=== PATIENT | male | born 1965 | race American Indian/Alaskan Native ===

== ENCOUNTER 2018-01-20 17:22 | Inpatient (IN) | payer SELFPAY ==
[2018-01-20 17:38] LABS: Basophils % (Auto) 0.6 % (0.0-1.8); Eosinophils % (Auto) 0.4 % (0.0-4.3); Hematocrit 41.3 % (35.5-45.6); Hemoglobin 13.3 gm/dl (11.8-15.2); Lymphocytes # (Auto) 1.9 K/mm3 (1.2-5.4); Mean Corpuscular HGB Conc 32 % (32-34); Mean Corpuscular Hemoglobin 28 pg (28-32); Mean Corpuscular Volume 88 fl (84-94); Monocytes # (Auto) 0.6 K/mm3 (0.0-0.8); Monocytes % (Auto) 10.5 % (0.0-7.3); Platelet Count 228 K/mm3 (140-440); Red Blood Count 4.72 M/mm3 (3.65-5.03); Red Cell Distribution Width 14.7 % (13.2-15.2)
[2018-01-20 17:47] LABS: BUN/Creatinine Ratio 10; Blood Urea Nitrogen 19 mg/dL (9-20); Calcium 9.5 mg/dL (8.4-10.2); Hemolysis Index 4
[2018-01-20 17:48] LABS: INR 0.99 (0.87-1.13)
--- NOTE | 2018-01-20 18:06 | Cat Scan Report ---
FINAL REPORT PROCEDURE: CT HEAD/BRAIN WO CON TECHNIQUE: Computerized tomography of the head was performed without contrast material. HISTORY: neuro deficits < 6hrs or sx present upon awakening COMPARISON: No prior studies are available for comparison. FINDINGS: Well-defined area of decreased density seen adjacent to the anterior horn of the right lateral ventricle within the adjacent white matter consistent with an old lacunar infarct. Several old lacunar infarcts are visualized in the left basal ganglia. There appears to be 1 old lacunar infarct in the right basal ganglia posterior laterally. There are multiple areas of decreased density in the right and left cerebellar hemispheres, right side greater than left. These are fairly well-defined and I suspect represent old areas of infarction. These are suboptimally seen due to beam hardening artifact in the posterior fossa. Small area of decreased density is seen in the left occipital lobe axial image 23 series 2 with intermediate decreased density. This is fairly well-defined. It may represent old ischemic change. Subacute ischemic change not entirely excluded. No evidence of skull fracture. Small amount of mucosal thickening seen posteriorly in the left maxillary sinus. The paranasal sinuses otherwise are clear. Mastoid air cells are clear. IMPRESSION: Multiple parenchymal lesions visualized. These are seen in the right and left basal ganglia and anterior to the anterior horn of the right lateral ventricle suggesting multiple old lacunar infarcts. Multiple low-density lesions seen in the right and left cerebellar hemisphere right greater than left. These may represent multiple old infarcts. These are suboptimally seen due to beam hardening artifact in the posterior fossa. There is also an area of decreased density in the left occipital lobe as described above. Subacute infarct is not excluded. This too could be old. This does not appear to represent an acute infarct. No other abnormalities are seen. No evidence of intracranial hemorrhage skull fracture or hydrocephalus. If clinically indicated MRI of the brain could be obtained to confirm the findings in the cerebellar hemisphere and left occipital lobe are old.
--- NOTE | 2018-01-20 18:34 | XRay Report ---
FINAL REPORT PROCEDURE: XR CHEST 1V AP TECHNIQUE: Chest radiograph anteroposterior view. CPT 20613 HISTORY: hypertension COMPARISON: No prior studies are available for comparison. FINDINGS: Heart: Normal. Mediastinum/Vessels: Normal. Lungs/Pleural space: Normal. Bony thorax: No acute osseous abnormality. Life support devices: None. IMPRESSION: No acute cardiopulmonary abnormality.
--- NOTE | 2018-01-20 19:27 | Emergency Department Report ---
ED Neuro Deficit HPI - General Chief Complaint: Neuro Symptoms/Deficit Stated Complaint: CVA Time Seen by Provider: 01/20/18 17:35 Source: EMS Mode of arrival: Stretcher Limitations: Other - History of Present Illness Initial Comments: 52-year-old man that came in as a stroke code. However, speaking with the patient's "boss" and coworker's as well as his , his symptoms are clearly not acute. His boss states that this is the second episode over the last 48 hours when the patient "rolled his eyes" but did not have a seizure. He felt dizzy today has had some slurred speech. His coworkers stated that he called 911 2 days ago for the same symptoms. He also states that the patient has been having headaches for weeks. 2 days ago EMS responded to the work site. The patient declined transfer. Yesterday he did not work. His states that his eyes have been disconjugate for at least 5 months. He has had several "spells". He has continued to work despite these events. The patient has a history of hypertension and is noncompliant with medication. At this time his speech is coherent. He is not complaining of any double vision. He does state that he knows that his eyes are not completely straight but he seems to D emphasize the chronicity of this. He does not complain of headache. As far as a last known well time it would appear that that was at least 48 hours ago. In addition at least some of the patient's strokelike symptoms are of at least 5 months duration. The patient has had intermittent episodes perhaps of worsening symptoms. He stayed home yesterday but did not seek medical attention. In any case, the patient will not be a candidate for TPA due to being outside the window for treatment with likely subacute stroke. Location: speech (intermittent speech difficulty) Presenting Symptoms: Absent: Weak/Paralyzed One Side, Sudden, Severe Headache, Blurred/Loss of Vision, Facial Droop/Numbness, Unable to Speak Clearly, Altered Mental Status History of same: Yes Place: home, work Severity: moderate Quality: intermittant Improves With: none On Anticoagulants: No Context: other Associated Symptoms: denies other symptoms (patient denied headaches but his coworkers stated that he has been complaining of this) Treatments Prior to Arrival: none - Related Data Allergies/Adverse Reactions: Allergies Allergy/AdvReac Type Severity Reaction Status Date / Time Penicillins Allergy Swelling Verified 01/20/18 17:26 ED Review of Systems ROS: Stated complaint: CVA Other details as noted in HPI Constitutional: denies: chills, fever Eyes: denies: eye pain, eye discharge, vision change ENT: denies: ear pain, throat pain Respiratory: denies: cough, shortness of breath, wheezing Cardiovascular: denies: chest pain, palpitations Endocrine: no symptoms reported Gastrointestinal: denies: abdominal pain, nausea, diarrhea Genitourinary: denies: urgency, dysuria Musculoskeletal: denies: back pain, joint swelling, arthralgia Skin: denies: rash, lesions Neurological: as per HPI, headache, other. denies: weakness, paresthesias Psychiatric: denies: anxiety, depression Hematological/Lymphatic: denies: easy bleeding, easy bruising ED Past Medical Hx - Past Medical History Hx Hypertension: Yes - Social History Smoking Status: Current Every Day Smoker Substance Use Type: None ED Neuro Physical Exam - General Limitations: Other General appearance: alert, in no apparent distress Suspected Stroke: Yes (but subacute) - Head Head exam: Present: atraumatic, normocephalic - Eye Eye exam: Present: normal appearance. Absent: EOMI, scleral icterus - ENT ENT exam: Present: mucous membranes moist, other (mild left facial asymmetry) - Neck Neck exam: Present: normal inspection - Respiratory Respiratory exam: Present: normal lung sounds bilaterally. Absent: respiratory distress - Cardiovascular Cardiovascular Exam: Present: regular rate, normal rhythm. Absent: systolic murmur, diastolic murmur, rubs, gallop - GI/Abdominal GI/Abdominal exam: Present: soft, normal bowel sounds. Absent: distended, tenderness, guarding, rebound, rigid - Rectal Rectal exam: Present: deferred - Extremities Exam Extremities exam: Present: normal inspection - Back Exam Back exam: Present: normal inspection - Neurological Exam Neurological exam: Present: alert, oriented X3. Absent: CN II-XII intact, motor sensory deficit - NIHSS Assessment Interval: Baseline 1a. Level of Consciousness: alert 1b. LOC Questions: answers correctly 1c. LOC Commands: performs tasks correctly 2. Best Gaze: partial gaze palsy 3. Visual: no visual loss 4. Facial Palsy: minor paralysis 5b. Motor Arm Right: no drift 5a. Motor Arm Left: no drift 6a. Motor Leg Left: no drift 6b. Motor Leg Right: no drift 7. Limb Ataxia: absent 8. Sensory: normal 9. Best Language: no aphasia 10. Dysarthria: normal 11. Extinction/Inattention: no abnormality Total Score: 2 Stroke Severity: Minor Stroke - Psychiatric Psychiatric exam: Present: normal affect, normal mood - Skin Skin exam: Present: warm, dry, intact, normal color. Absent: rash ED Course Vital Signs 01/20/18 01/20/18 17:51 18:02 Temperature 98.2 F 98.7 F Pulse Rate 71 67 Respiratory 18 18 Rate Blood Pressure 152/96 Blood Pressure 150/96 [Left] O2 Sat by Pulse 99 100 Oximetry - Reevaluation(s) Reevaluation #1: Remarkably the patient is able to perform finger to nose testing. He does appear to have at least a nerve palsy on the right with facial asymmetry on the left. He did not have ne drift or sensory loss. He does not have inattention. I did not walk the patient but I suspect that he would have a cerebellar gait. 01/20/18 19:41 Reevaluation #2: I conferred with the interpreting radiologist. The patient has multiple parenchymal lesions both right and left basal ganglion. He has multiple cerebellar lesions. Is no definite acute abnormality seen. There are multiple areas also in the occipital lobe noted. Markedly the patient does not have a gross visual field deficits or dysmetria or diplopia on exam. He is not a candidate for TPA due to his prolonged last well time. In addition he likely has had subacute strokes. TPA is contraindicated in this setting. Notwithstanding this, emergency MR studies were ordered. The patient has chronic renal insufficiency so CTA is not appropriate. His status was discussed with Dr. Rm who is admitting the patient to the hospitalist service. He will be given aspirin. 01/20/18 19:43 - Lab Data Result diagrams: 01/20/18 17:25 01/20/18 17:25 Lab Results 01/20/18 01/20/18 01/20/18 Range/Units 17:21 17:25 17:25 WBC 5.7 (4.5-11.0) K/mm3 RBC 4.72 (3.65-5.03) M/mm3 Hgb 13.3 (11.8-15.2) gm/dl Hct 41.3 (35.5-45.6) % MCV 88 (84-94) fl MCH 28 (28-32) pg MCHC 32 (32-34) % RDW 14.7 (13.2-15.2) % Plt Count 228 (140-440) K/mm3 Lymph % (Auto) 33.0 (13.4-35.0) % Churchill % (Auto) 10.5 H (0.0-7.3) % Eos % (Auto) 0.4 (0.0-4.3) % Baso % (Auto) 0.6 (0.0-1.8) % Lymph # 1.9 (1.2-5.4) K/mm3 Churchill # 0.6 (0.0-0.8) K/mm3 Eos # 0.0 (0.0-0.4) K/mm3 Baso # 0.0 (0.0-0.1) K/mm3 Seg Neutrophils % 55.5 (40.0-70.0) % Seg Neutrophils # 3.2 (1.8-7.7) K/mm3 PT 13.6 (12.2-14.9) Sec. INR 0.99 (0.87-1.13) APTT 25.0 (24.2-36.6) Sec. Thrombin Time (15.1-19.6) Sec. Sodium (137-145) mmol/L Potassium (3.6-5.0) mmol/L Chloride (98-107) mmol/L Carbon Dioxide (22-30) mmol/L Anion Gap mmol/L BUN (9-20) mg/dL Creatinine (0.8-1.5) mg/dL Estimated GFR ml/min BUN/Creatinine Ratio % Glucose (75-100) mg/dL POC Glucose 113 H (70-105) Calcium (8.4-10.2) mg/dL Troponin T (0.00-0.029) ng/mL 01/20/18 01/20/18 Range/Units 17:25 17:25 WBC (4.5-11.0) K/mm3 RBC (3.65-5.03) M/mm3 Hgb (11.8-15.2) gm/dl Hct (35.5-45.6) % MCV (84-94) fl MCH (28-32) pg MCHC (32-34) % RDW (13.2-15.2) % Plt Count (140-440) K/mm3 Lymph % (Auto) (13.4-35.0) % Churchill % (Auto) (0.0-7.3) % Eos % (Auto) (0.0-4.3) % Baso % (Auto) (0.0-1.8) % Lymph # (1.2-5.4) K/mm3 Churchill # (0.0-0.8) K/mm3 Eos # (0.0-0.4) K/mm3 Baso # (0.0-0.1) K/mm3 Seg Neutrophils % (40.0-70.0) % Seg Neutrophils # (1.8-7.7) K/mm3 PT (12.2-14.9) Sec. INR (0.87-1.13) APTT (24.2-36.6) Sec. Thrombin Time 15.8 (15.1-19.6) Sec. Sodium 138 (137-145) mmol/L Potassium 3.5 L (3.6-5.0) mmol/L Chloride 100.0 (98-107) mmol/L Carbon Dioxide 23 (22-30) mmol/L Anion Gap 19 mmol/L BUN 19 (9-20) mg/dL Creatinine 1.9 H (0.8-1.5) mg/dL Estimated GFR 38 ml/min BUN/Creatinine Ratio 10 % Glucose 119 H (75-100) mg/dL POC Glucose (70-105) Calcium 9.5 (8.4-10.2) mg/dL Troponin T < 0.010 (0.00-0.029) ng/mL - EKG Data -: EKG Interpreted by Sd EKG shows normal: sinus rhythm, axis, intervals Interpretation: nonspecific ST-T wave yen, other (patient has a low atrial rhythm with evidence of LVH. No acute changes) - Radiology Data Radiology results: report reviewed - Thrombolytic Inclusion/Exclusion Thrombolytic Exclusion Criteria: Symptom Onset > 3 Hours Thrombolytic Contraindications: Stroke in Past 3 Months Critical Care Time: Yes Critical care time in (mins) excluding proc time.: 60 Critical care attestation.: If time is entered above; I have spent that time in minutes in the direct care of this critically ill patient, excluding procedure time. ED Disposition Clinical Impression: Renal insufficiency CVA (cerebral vascular accident) Qualifiers: CVA mechanism: unspecified Qualified Code(s): I63.9 - Cerebral infarction, unspecified Hypertension Qualifiers: Hypertension type: essential hypertension Qualified Code(s): I10 - Essential ( primary) hypertension Disposition: OP ADMIT IP TO THIS HOSP Is pt being admited?: Yes Does the pt Need Aspirin: Yes Condition: Stable Instructions: Hypertension (ED) Referrals: PRIMARY CARE, [Primary Care Provider] - 3-5 Days Time of Disposition: 19:46
[2018-01-20] MEDS ORDERED: BABY ASPIRIN PO ONE (19:46)
--- NOTE | 2018-01-20 20:26 | Magnetic Resonance Report ---
FINAL REPORT PROCEDURE: MR BRAIN WO CON TECHNIQUE: Magnetic resonance imaging of the brain was performed without contrast material. HISTORY: multiple lacunar infarcts COMPARISON: Prior CT scan of the brain obtained earlier today. FINDINGS: There is no evidence of intracranial hemorrhage. No parenchymal hemorrhage, mass lesions or mass effect are identified. There are however multiple areas of restricted diffusion visualized. These are visualized in both the right and left cerebellar hemisphere more prominent on the right than the left. There are also several small areas of restricted diffusion, mild increased T2 signal decreased T1 signal in the left occipital lobe posteriorly inferiorly. There is also a small area of restricted diffusion in the left side of the shukri superiorly medially and a small area within the vermis. There is also a small area of restricted diffusion centrally in the right thalamus. These areas of restricted diffusion are consistent with multiple acute lacunar and small parenchymal infarctions. No significant mass effect. The 4th ventricle appears patent and is located in the midline. Small old lacunar infarcts are seen in the right and left basal ganglia. A few of the show hemosiderin staining artifact consistent with previous small hemorrhages. No acute hemorrhage is seen. Small old lacunar infarct also seen anterior to the anterior horn of the right lateral ventricle. There is a small amount of increased T2 signal in the periventricular white matter and deep white matter without restricted diffusion consistent with mild gliosis related to microvascular disease or white matter changes of aging. The ventricles are normal size and are midline. The corpus callosum, region of the pituitary fossa and the foramina magnum are unremarkable. There is minimal fluid or mucosal thickening posteriorly in the left maxillary sinus. The paranasal sinuses otherwise are clear. Mastoid air cells are clear. IMPRESSION: Multiple acute infarctions visualized in the right and left cerebellar hemisphere and left occipital lobe. Acute lacunar infarct also seen in the vermis and left side of the shukri, and right thalamus. Old lacunar infarcts are present as described. No significant mass effect is seen. There is mild gliosis as described. Minimal paranasal sinus disease as described. I have discussed these findings with Dr. Suresh by phone conversation on 01/30/2018 at 8:14 p.m. Eastern standard time. Critical value:
--- NOTE | 2018-01-20 20:30 | Magnetic Resonance Report ---
FINAL REPORT PROCEDURE: MR MRA/MRV HEAD WO CON TECHNIQUE: Axial 3-D [id number] MR angiography of the [place] and brain was performed. The source images were reconstructed in various views using maximum intensity projection. HISTORY: multiple lacunar infarcts COMPARISON: No prior studies are available for comparison. FINDINGS: The visualized portions of the internal carotid artery appear widely patent. The carotid siphons appear widely patent. Both A1 segments are widely patent. The anterior cerebral artery and anterior communicating artery appear patent. Middle cerebral arteries show no abnormalities. Right and left vertebral arteries are widely patent. Basilar artery is also widely patent. There is patent posterior communicating artery on the right. Right and left posterior cerebral arteries appear widely patent. There is no evidence of occlusion of the anterior or posterior circulation. No dissection or aneurysm is seen. No vascular malformations are identified. IMPRESSION: Anterior and posterior circulation are intact as described. No evidence of occlusion, significant stenosis, aneurysm or vascular malformation.
--- NOTE | 2018-01-20 21:45 | History and Physical Report ---
History of Present Illness Date of examination: 01/20/18 Date of admission: 01/20/2018 Chief complaint: Chief complaint: Left facial weakness and left-sided weakness. History of present illness: History of Present Illness: 52-year-old -[place] male comes in for weakness of the left side of face for the last 48 hours. Patient apparently rolled his left eye up. Patient came in as a "stroke code"patient able to work the last 48 hours.. Patient declined transfer. Patient has been having headaches for the last 48 hours. Patient is a poor historian. Patient says he has double vision on looking to the right side. No realization of fluids. No weakness in the legs. Able to walk normally. No chest pain no shortness of breath and no palpitations. Past Medical History Hypertension: Yes Social History Smoking Status: Current Every Day Smoker Substance Use Type: None Family history Htn Surgical history None Review of Systems ROS: Stated complaint: CVA Other details as noted in HPI Constitutional: denies: chills, fever Eyes: denies: eye pain, eye discharge, vision change ENT: denies: ear pain, throat pain Respiratory: denies: cough, shortness of breath, wheezing Cardiovascular: denies: chest pain, palpitations Endocrine: no symptoms reported Gastrointestinal: denies: abdominal pain, nausea, diarrhea Genitourinary: denies: urgency, dysuria Musculoskeletal: denies: back pain, joint swelling, arthralgia Skin: denies: rash, lesions Neurological: as per HPI, headache, other. Left-sided facial weakness, Normal gait Psychiatric: denies: anxiety, depression Hematological/Lymphatic: denies: easy bleeding, easy bruising 14 point review of systems done and otherwise negative Medications and Allergies Allergies Allergy/AdvReac Type Severity Reaction Status Date / Time Penicillins Allergy Swelling Verified 01/20/18 17:26 Home Medications Medication Instructions Recorded Confirmed Last Taken Type No Known Home Medications [No 01/20/18 01/20/18 Unknown History Reported Home Medications] Exam - Physical Exam Narrative exam: Lying in bed comfortably - Constitutional Vitals: Temp Pulse Resp BP Pulse Ox 98.7 F 73 9 L 172/97 98 01/20/18 18:02 01/20/18 21:24 01/20/18 21:16 01/20/18 21:16 01/20/18 21:16 General appearance: Present: no acute distress, well-nourished - EENT Eyes: Present: PERRL ENT: hearing intact, clear oral mucosa - Neck Neck: Present: supple, normal ROM - Respiratory Respiratory effort: normal Respiratory: bilateral: CTA - Cardiovascular Heart rate: 78 Rhythm: regular Heart Sounds: Present: S1 & S2. Absent: rub, click - Extremities Extremities: no ischemia, pulses intact, pulses symmetrical, No edema Peripheral Pulses: within normal limits - Abdominal General gastrointestinal: Present: soft, non-tender, non-distended, normal bowel sounds Male genitourinary: Present: normal - Rectal Rectal Exam: deferred - Integumentary Integumentary: Present: clear, warm, dry - Musculoskeletal Musculoskeletal: strength equal bilaterally (patient has 5 over 5 power in all 4 extremities. Reflexes are normal), left sided weakness, other (left facial weakness complaint. Unable to close his left eye strongly. Unable to wrinkle his left forehead.) - Psychiatric Psychiatric: appropriate mood/affect, intact judgment & insight - Neurologic Neurologic: CNII-XII intact, moves all extremities Results - Labs CBC & Chem 7: 01/20/18 17:25 01/20/18 17:25 Labs: Laboratory Last Values WBC 5.7 K/mm3 (4.5-11.0) 01/20/18 17:25 RBC 4.72 M/mm3 (3.65-5.03) 01/20/18 17:25 Hgb 13.3 gm/dl (11.8-15.2) 01/20/18 17:25 Hct 41.3 % (35.5-45.6) 01/20/18 17:25 MCV 88 fl (84-94) 01/20/18 17:25 MCH 28 pg (28-32) 01/20/18 17:25 MCHC 32 % (32-34) 01/20/18 17:25 RDW 14.7 % (13.2-15.2) 01/20/18 17:25 Plt Count 228 K/mm3 (140-440) 01/20/18 17:25 Lymph % (Auto) 33.0 % (13.4-35.0) 01/20/18 17:25 Hawkins % (Auto) 10.5 % (0.0-7.3) H 01/20/18 17:25 Eos % (Auto) 0.4 % (0.0-4.3) 01/20/18 17:25 Baso % (Auto) 0.6 % (0.0-1.8) 01/20/18 17:25 Lymph # 1.9 K/mm3 (1.2-5.4) 01/20/18 17:25 Hawkins # 0.6 K/mm3 (0.0-0.8) 01/20/18 17:25 Eos # 0.0 K/mm3 (0.0-0.4) 01/20/18 17:25 Baso # 0.0 K/mm3 (0.0-0.1) 01/20/18 17:25 Seg Neutrophils % 55.5 % (40.0-70.0) 01/20/18 17:25 Seg Neutrophils # 3.2 K/mm3 (1.8-7.7) 01/20/18 17:25 PT 13.6 Sec. (12.2-14.9) 01/20/18 17:25 INR 0.99 (0.87-1.13) 01/20/18 17:25 APTT 25.0 Sec. (24.2-36.6) 01/20/18 17:25 Thrombin Time 15.8 Sec. (15.1-19.6) 01/20/18 17:25 Sodium 138 mmol/L (137-145) 01/20/18 17:25 Potassium 3.5 mmol/L (3.6-5.0) L 01/20/18 17:25 Chloride 100.0 mmol/L (98-107) 01/20/18 17:25 Carbon Dioxide 23 mmol/L (22-30) 01/20/18 17:25 Anion Gap 19 mmol/L 01/20/18 17:25 BUN 19 mg/dL (9-20) 01/20/18 17:25 Creatinine 1.9 mg/dL (0.8-1.5) H 01/20/18 17:25 Estimated GFR 38 ml/min 01/20/18 17:25 BUN/Creatinine Ratio 10 % 01/20/18 17:25 Glucose 119 mg/dL (75-100) H 01/20/18 17:25 POC Glucose 113 (70-105) H 01/20/18 17:21 Calcium 9.5 mg/dL (8.4-10.2) 01/20/18 17:25 Troponin T < 0.010 ng/mL (0.00-0.029) 01/20/18 17:25 - Imaging and Cardiology EKG: report reviewed CT Scan - head: report reviewed MRI - head: report reviewed Assessment and Plan Advance Directives: Yes (full code) VTE prophylaxis?: Chemical Plan of care discussed with patient/family: Yes - Patient Problems (1) Acute CVA (cerebrovascular accident) Current Visit: Yes Status: Acute Plan to address problem: 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 MRI suggests multiple infarcts. Clinical picture not consistent with the MRI report We will get a second opinion from neurology CVA workup ordered (2) Hypertension Current Visit: Yes Status: Chronic Qualifiers: Hypertension type: essential hypertension Qualified Code(s): I10 - Essential (primary) hypertension Plan to address problem: Amlodipine 10 mg po qd added (3) Acute kidney injury Current Visit: Yes Status: Acute Plan to address problem: IV fluids for now (4) Hypokalemia Current Visit: Yes Status: Acute Plan to address problem: Potassium supplemented (5) DVT prophylaxis Current Visit: Yes Status: Acute Plan to address problem: Lovenox 40 mg subcutaneous daily
[2018-01-20 21:47] LABS: Bilirubin,Urine NEG (Negative); Blood,Urine NEG (Negative); Color,Urine Yellow (Yellow); Hyaline Casts,Urine 15 /LPF; Mucus,Urine 2+ /HPF
[2018-01-20 21:51] LABS: Benzodiazepines Screen,Urine PRESUMPTIVE NEGATIVE; Cocaine Screen,Urine PRESUMPTIVE NEGATIVE; Methadone Screen,Urine PRESUMPTIVE NEGATIVE; Opiate Screen,Urine PRESUMPTIVE NEGATIVE
[2018-01-20 22:05] LABS: Amphetamine Screen,Urine PRESUMPTIVE POSITIVE; Cannabinoid Screen,Urine PRESUMPTIVE POSITIVE
[2018-01-20 22:07] LABS: Creatine Kinase MB 7.9 ng/mL (0.0-4.0)
[2018-01-20 22:08] LABS: Alanine Aminotransferase 13 units/L (7-56); Albumin 4.1 g/dL (3.9-5)
[2018-01-20 22:10] LABS: Bilirubin,Direct < 0.2 mg/dL (0-0.2)
[2018-01-21] MEDS ORDERED: SODIUM CHLORIDE FLUSH SYRINGE 10 ML IV PRN ×3 (00:52→01:15)
[2018-01-21] MEDS ORDERED: ZOFRAN IV PRN (00:52)
[2018-01-21] MEDS ORDERED: TYLENOL PO PRN (00:52)
[2018-01-21] MEDS ORDERED: NACL 0.45% 1000 ML 1,000 ML IV SCH (01:00)
[2018-01-21] MEDS ORDERED: MORPHINE IV PRN (01:05)
[2018-01-21] MEDS ORDERED: PERCOCET 5/325 PO PRN (01:05)
[2018-01-21] MEDS ORDERED: AMBIEN PO PRN (01:05)
[2018-01-21] MEDS ORDERED: K-DUR PO NR (01:21)
[2018-01-21] MEDS ORDERED: SODIUM CHLORIDE FLUSH SYRINGE 10 ML INJ PRN (04:35)
[2018-01-21] MEDS ORDERED: NACL 0.9% 1000 ML 1,000 ML IV SCH (05:00)
[2018-01-21] MEDS ORDERED: SODIUM CHLORIDE FLUSH SYRINGE 10 ML IV SCH (10:00)
[2018-01-21] MEDS ORDERED: LOVENOX SUB-Q SCH (10:00)
[2018-01-21] MEDS ORDERED: COZAAR PO SCH (10:00)
[2018-01-21] MEDS ORDERED: NORVASC PO SCH (10:00)
--- NOTE | 2018-01-21 11:09 | Event Note ---
Date: 01/21/18 Prior to seeing him, I reviewed his MRI showing 31 mm diameter right cerebellar stroke in both vertical and axial dimensions, large enough he is in danger of edema from it in the next hours to 2 days that could endanger his brainstem and produce hydrocephalus. His BP is concerning too, which could lead to hemorrhagic transformation. He should be transferred to a facility that has neurosurgery, such as [facility] or [facility]. I suggest Alexandra junior now and during transfer. Brain MRA is ok.
[2018-01-21] MEDS ORDERED: ASPIRIN PO SCH (12:00)
[2018-01-21] MEDS ORDERED: CARDENE 50 MG in NACL 0.9% 250ML 230 ML IV SCH (13:00)
--- NOTE | 2018-01-21 14:17 | Event Note ---
Date: 01/21/18 Patient will be transferred to [facility] when bed available under care of Dr Villarreal.
--- NOTE | 2018-01-21 15:10 | Discharge Summary ---
Providers - Providers Date of Admission: 01/21/18 00:52 Date of discharge: 01/21/18 Attending physician: RACHEAL PITTS 01/21/18 01:05 Consult to Physician [CONS] Routine Comment: Consulting Provider: JOYCE WEAVER Physician Instructions: Reason For Exam: CVA 01/21/18 01:09 Occupational Therapy Evaluate and Treat [CONS] Routine Comment: Reason For Exam: Neuro deficits Physical Therapy Evaluation and Treat [CONS] Routine Comment: Reason For Exam: Neuro deficits 01/21/18 04:35 Occupational Therapy Evaluate and Treat [CONS] Routine Comment: Reason For Exam: Neuro deficits Physical Therapy Evaluation and Treat [CONS] Routine Comment: Reason For Exam: Neuro deficits Primary care physician: CARPENTER PROTOTYPE Hospitalization Condition: Stable Hospital course: Discharge diagnosis: (1) Acute b/l cerebeller CVA (cerebrovascular accident) (2) Hypertension, malignant (3) Acute kidney injury, vasomotor nephropathy vs hypertensive CKD (4) Hypokalemia, repleted (5) Substance abuse Disposition: DC/TX-70 ANOTHER TYPE HLTHCARE Time spent for discharge: >60 minutes Core Measure Documentation - Palliative Care Palliative Care/ Comfort Measures: Not Applicable - Core Measures Any of the following diagnoses?: stroke - Stroke Discharge Requirements Statin for LDL = or >70 mg/dl on DC: Yes Anticoag for atrial fib/atrial flutter: Not Applicable Antithrombotic for ischemic stroke: Yes Exam - Constitutional Vitals: Temp Pulse Resp BP Pulse Ox 98.6 F 75 17 181/110 100 01/21/18 08:00 01/21/18 14:40 01/21/18 14:40 01/21/18 14:40 01/21/18 14:40 General appearance: Present: no acute distress, well-nourished - EENT Eyes: Present: PERRL ENT: hearing intact, clear oral mucosa, oropharyngeal erythema - Neck Neck: Present: supple, normal ROM - Respiratory Respiratory effort: normal Respiratory: bilateral: CTA - Cardiovascular Heart Sounds: Present: S1 & S2. Absent: rub, click - Extremities Extremities: pulses symmetrical, No edema Peripheral Pulses: within normal limits - Abdominal General gastrointestinal: Present: soft, non-tender, non-distended, normal bowel sounds - Integumentary Integumentary: Present: clear, warm, dry - Musculoskeletal Musculoskeletal: gait normal, strength equal bilaterally - Psychiatric Psychiatric: appropriate mood/affect, intact judgment & insight - Neurologic Neurologic: CNII-XII intact, moves all extremities Plan Activity: other (bedrest) Diet: low fat, low salt Follow up with: PRIMARY CARE, [Primary Care Provider] - 3-5 Days
--- NOTE | 2018-01-21 15:32 | Consultation ---
History of Present Illness Consult date: 01/21/18 Requesting physician: RACHEAL PITTS Reason for Consult: stroke Chief complaint: vertigo, slurring, numb right side History of present illness: This 52-year-old right-handed -[place] male per Dr. Cordero in the ER: "His boss states that this is the second episode over the last 48 hours when the patient "rolled his eyes" but did not have a seizure. He felt dizzy today has had some slurred speech. His coworkers stated that he called 911 2 days ago for the same symptoms. He also states that the patient has been having headaches for weeks. 2 days ago EMS responded to the work site. The patient declined transfer. Yesterday he did not work. His states that his eyes have been disconjugate for at least 5 months. He has had several "spells". He has continued to work despite these events. The patient has a history of hypertension and is noncompliant with medication. At this time his speech is coherent. He is not complaining of any double vision. He does state that he knows that his eyes are not completely straight but he seems to D emphasize the chronicity of this. He does not complain of headache. As far as a last known well time it would appear that that was at least 48 hours ago. In addition at least some of the patient's strokelike symptoms are of at least 5 months duration. The patient has had intermittent episodes perhaps of worsening symptoms. He stayed home yesterday but did not seek medical attention. In any case, the patient will not be a candidate for TPA due to being outside the window for treatment with likely subacute stroke." He states since September he has had some episodes of faint feeling with sweating and blurred vision like a shadow in his eyes particularly at night around 7 PM associated he thinks with high blood pressure. He was seen at an emergency room where blood pressure medication was suggested but he had no insurance and didn't follow through. 5 days ago he felt faint at work with spinning and rocking boat feeling. 3 days ago he felt faint again and had a blood pressure at work of 190/120 along with the vertigo. Mild headache for 10- 15 minutes and took 2 days off. Yesterday he went back to work and had some numbness of the right side of his face and right side of his body with some drooping on the right side of his face for which his shows me a picture that shows ptosis on the right but no clear lower facial drooping. His balance is off he says but he no longer has headache. He has had double vision for the past 5 days (cannot say if horizontal and vertical) but okay if he looked only with the left eye. He is no longer numb and has no double vision. He has some slurring of speech which has cleared also gradually during today. Blood pressure initially was in the 152/96 range but has since gone up. I reviewed MRI findings earlier showing 3 cm right cerebellar acute infarct with smaller left cerebellar infarct perhaps half that size and small occipital infarct on the left with additional embolic punctate infarcts in the bilateral cerebellum and left shukri and right thalamus. GRE sequence shows hemosiderin in 2 areas of basal ganglia and one in left parietal white matter. CT scan shows some of the infarcts but unfortunately was read as being old infarcts. I suggested transferred to a facility that has neurosurgical backup because the potential edema in the next few days from the cerebellar infarcts which could then compress the brainstem and/or cause hydrocephalus. Past History Past Medical History: hypertension (noted in 2011 for which she was prescribed 3 medications, then later to those medications, and later 3 medications again and ended up stopping the medication. Not on any vitamins or supplements or aspirin.) Past Surgical History: Other (left elbow replacement due to a crush injury) Social history: smoking (1 pack every 2 days, had stopped years ago for 2-3 months and resumed. He had used nicotine patches in the past with success.), alcohol abuse (30 beers per week spread out evenly since he works 7 days a week and drinks. After work), other (works in a warehouse). denies: prescription drug abuse, IV drug use (uses marijuana once a month but denies other illicit drugs) Family history: diabetes (2 maternal uncles and one maternal aunt), hypertension (maternal grandmother, mother and sister), other (negative for epilepsy). denies: stroke Medications and Allergies Allergies Allergy/AdvReac Type Severity Reaction Status Date / Time Penicillins Allergy Swelling Verified 01/20/18 17:26 Home Medications Medication Instructions Recorded Confirmed Last Taken Type Enoxaparin [Lovenox] 40 mg SUB-Q QDAY syringe 01/21/18 Unknown Rx Losartan [Cozaar] 100 mg PO QDAY tablet 01/21/18 Unknown Rx Pravastatin [Pravachol] 80 mg PO QHS tablet 01/21/18 Unknown Rx Zolpidem [Ambien] 5 mg PO QHS PRN tablet 01/21/18 Unknown Rx oxyCODONE /ACETAMINOPHEN [Percocet 1 tab PO Q6H PRN tablet 01/21/18 Unknown Rx 5/325 mg] Active Meds: Active Medications Acetaminophen (Tylenol) 650 mg PO Q4H PRN PRN Reason: Pain MILD(1-3)/Fever >100.5/KEYES Aspirin (Aspirin) 325 mg PO QDAY LISSETT Enoxaparin Sodium (Lovenox) 40 mg SUB-Q QDAY LISSETT Last Admin: 01/21/18 09:27 Dose: 40 mg Sodium Chloride (Nacl 0.9% 1000 Ml) 1,000 mls @ 125 mls/hr IV DIRECT LISSETT Last Admin: 01/21/18 05:04 Dose: 125 mls/hr Nicardipine HCl 50 mg/ Sodium (Chloride) 250 mls @ 25 mls/hr IV TITR LISSETT; Protocol Last Admin: 01/21/18 14:20 Dose: 2.5 mg/hr, 12.5 mls/hr Losartan Potassium (Cozaar) 100 mg PO QDAY LISSETT Last Admin: 01/21/18 09:27 Dose: 100 mg Morphine Sulfate (Morphine) 2 mg IV Q4H PRN PRN Reason: Pain, Moderate (4-6) Ondansetron HCl (Zofran) 4 mg IV Q8H PRN PRN Reason: Nausea And Vomiting Oxycodone/Acetaminophen (Percocet 5/325) 1 tab PO Q6H PRN PRN Reason: Pain, Moderate (4-6) Pravastatin Sodium (Pravachol) 40 mg PO QHS LISSETT Sodium Chloride (Sodium Chloride Flush Syringe 10 Ml) 10 ml IV BID [facility] Last Admin: 01/21/18 09:32 Dose: 10 ml Sodium Chloride (Sodium Chloride Flush Syringe 10 Ml) 10 ml IV PRN PRN PRN Reason: LINE FLUSH Zolpidem Tartrate (Ambien) 5 mg PO QHS PRN PRN Reason: Insomnia Review of Systems All systems: negative (no headaches usually, dizziness off and on since September , some snoring and his is noted some pauses but has never timed them but says is not sleepy during the day, not driving since he has no license, no memory problems.) Physical Examination - Vital Signs Vital Signs: Vital Signs Temp Pulse Resp BP Pulse Ox 98.2 F 71 18 152/96 99 01/20/18 17:51 01/20/18 17:51 01/20/18 17:51 01/20/18 17:51 01/20/18 17:51 - Physical Exam Narrative exam: General Appearance: well developed well nourished (per BMI) early 50s - [place] male in NAD, accompanied by his . HEENT: atraumatic, normocephalic; no bruits, 2+ Brianna without soreness or induration or enlargement, sclerae nonicteric. Oropharynx pink and moist. Neck: supple, no bruits. Heart: no murmur or extra sounds. Extremities: no clubbing, cyanosis or edema. 2+ posterior tibial pulses bilaterally. Neurologic Exam: Mental Status: Awake, alert, oriented X 3, speech is clear, names pen and clip but not tip of pen, and abstracts well. Names President and Ink Maker, serial 7's with one error but gives 5+7= 12, no right-left confusion, gets 2 of 3 objects at 3 minutes, spells WORLD backwards DLORW (thus with one transposition). Cranial Nerves: brennan full, no papilledema, SVPs present, PERRLA, EOMs full without nystagmus or diplopia, facial sensation intact to pinprick and light touch, no facial weakness, Augustine is midline, palate rises symmetrically to phonation but gags are absent, shoulder shrug is 5 X 2, tongue protrudes midline. Cerebellar: finger to nose is dysmetric on the right, [id number] is slightly dysmetric on the left heel. Sensory: intact to light touch, pinprick, and vibrations. Double simultaneous stimulation is intact. Motor Exam Upper Extremities: no drift or pronation, Jaclyn intact. Special Effects Technician are 5 X 2, tone is normal. No atrophy or fasciculations are noted visually. Motor Exam Lower Extremities: no leg lag, quadriceps and anterior tibials and gastrocnemius are 5 X 2. Jaclyn intact. Tone is normal. No atrophy or fasciculations are noted visually. Reflexes: Palmomental, snout and jaw jerk are negative. Triceps are trace, biceps are 2 right and 1 left and brachioradialis are 1 bilaterally. Herlinda' s is negative bilaterally. Knee jerks are 2+ right and 2 left and ankle jerks are 0 bilaterally even with reinforcement and without clonus. Toes are downgoing bilaterally to Babinski testing. - Assessment Assessment Interval: Baseline - Level of Consciousness 1a. Level of Consciousness: alert - LOC Questions 1b. LOC Questions: answers correctly - LOC Command 1c. LOC Commands: performs tasks correctly - Best Gaze 2. Best Gaze: partial gaze palsy - Visual 3. Visual: no visual loss - Facial Palsy 4. Facial Palsy: minor paralysis - Motor Arm 5b. Motor Arm Right: no drift - Motor Leg 6a. Motor Leg Left: no drift - Limb Ataxia 7. Limb Ataxia: absent - Sensory 8. Sensory: normal - Best Language 9. Best Language: no aphasia - Dysarthria 10. Dysarthria: normal - Extinction and Inattention 11. Extinction/Inattention: no abnormality Results - Laboratory Findings CBC and BMP: 01/20/18 17:25 01/20/18 17:25 Abnormal Lab Findings: Abnormal Labs 01/20/18 01/20/18 01/20/18 17:21 17:25 17:25 [place] % (Auto) 10.5 H Potassium 3.5 L Creatinine 1.9 H Glucose 119 H POC Glucose 113 H Total Creatine Kinase CK-MB (CK-2) 01/20/18 17:25 [place] % (Auto) Potassium Creatinine Glucose POC Glucose Total Creatine Kinase 512 H CK-MB (CK-2) 7.9 H Assessment and Plan Impression: 1. Embolic strokes 2. Hypertension 3. Tobacco use 4. ETOH abuse Plan: 1. Echo reading is pending. He says they had him hold his breath, so probably done with bubbles. 2. Should get MRAs of neck and head noncontrast since creatinine is 1.9. Duplex of carotids was ok. 3. Told him I suggest nicotine patch with prn gum for additional cravings. 4. Told him more than 2 drinks of ETOH in 24 hours (for males) increases stroke risk though less ETOH may have protective effect. 5. Recommend transfer to a facility with neurosurgical backup. This will apparently be [facility] per Dr. Pitts. Suggest he go there on a Cardene drip which has controlled his BP into intermediate range, 158/96 instead of earlier 181/110. 45 minutes critical care time spent with this patient occluding review of 100s of MRI images, some of which I showed him and his to point out all the stroke locations and I explained the risk of aseptic compression and/or hydrocephalus if he gets edema around the strokes or hemorrhagic transformation of the strokes. Thank you for an interesting consultation on this pleasant early 50s male.
[2018-01-21 16:18] LABS: BUN/Creatinine Ratio 18; Blood Urea Nitrogen 20 mg/dL (9-20); Calcium 9.4 mg/dL (8.4-10.2); Hemolysis Index 14
[2018-01-21] MEDS ORDERED: PRAVACHOL PO SCH (22:00)
[2018-01-21 22:44] VITALS: BP 143/87
== END 2018-01-21 21:19 | disposition home or self-care (01) | DRG 64 ==
LOC: ED 17:22 → 4A 01-21 00:52 → CC1 01-21 13:29
PROVIDERS: ADMIT Internal Medicine; ATTEND Internal Medicine
DX: I63.9 Cerebral infarction, unspecified (principal); N17.0 Acute kidney failure with tubular necrosis; E87.6 Hypokalemia; I12.9 Hypertensive chronic kidney disease with stage 1 through stage 4 chronic kidney disease, or unspecified chronic kidney disease; N18.9 Chronic kidney disease, unspecified; F12.90 Cannabis use, unspecified, uncomplicated; F17.210 Nicotine dependence, cigarettes, uncomplicated; F10.10 Alcohol abuse, uncomplicated; Z91.19 Patient's noncompliance with other medical treatment and regimen; Z88.0 Allergy status to penicillin; Z83.3 Family history of diabetes mellitus; Z82.49 Family history of ischemic heart disease and other diseases of the circulatory system
CPT/HCPCS: 36415; 70450; 70544; 70551; 71045; 80048; 80074; 80307; 81001; 82550; 82553; 82962; 83036; 83735; 83880; 84484; 85025; 85610; 85670; 85730; 93306; 93880; J1650; J7030; J7050